=== PATIENT | female | born 1955 | race Caucasian/White ===

== ENCOUNTER → 2018-02-17 | Outpatient (CLI) | payer OTHER ==
[~2018-02-17] MED LIST: ACET500T33 PO; ALPR0.25 PO; OXYC1TAB7 PO
--- NOTE | 2018-02-20 18:08 | PATHOLOGY ---
[facility] Accession Number: [id number] . 01 Material submitted: . PART A: LT BREAST TISSUE PART B: LT AXILLA NODE TISSUE . 01 Clinical history: . Left breast inflammatory carcinoma Left axilla adenopathy . 02 Diagnosis: A. Left breast needle biopsies: - Invasive high-grade ductal carcinoma. - See comment. . B. Left axillary lymph node needle biopsies: - Metastatic poorly differentiated adenocarcinoma. . (ESTELLAM:liang; 02/20/2018) MBR/02/20/2018 . 02 Comment: Sections of the left breast needle biopsies reveal an invasive mammary carcinoma. The malignant cells are present in solid nests and cords which infiltrate an inflamed reactive desmoplastic stroma. The tumor shows little to no tubule formation and marked nuclear pleomorphism. Mitotic figures are readily demonstrated. Some of the nests of tumor show central coagulative tumor necrosis. There are a few scattered tumor associated calcifications. There is no definitive lymphovascular tumor invasion. Breast prognostic studies will be obtained, the results of which will be reported separately. . Sections of the left axillary lymph node needle biopsies essentially show replacement of maira parenchyma by a metastatic epithelial neoplasm. The tumor cells are present in nests and cords and the neoplastic cells appear similar to that within the left breast needle biopsies. . The case is also examined by Dr. Bronson, who concurs with the diagnosis. Breast prognostic studies will be obtained on the breast biopsy, the results of which will be reported seperately. . . . . (ESTELLAM:liang; 02/20/2018) . 02 Electronically signed: . Valentino Byrnes MD, Pathologist NPI- [id number] . 01 Gross description: . A. The specimen is received in formalin, labeled "Lars Uriarte, left breast tissue" and consists of 6 needle cores of leon-yellow tissue measuring between 0.4 cm and 1.8 cm in length and 0.2 cm each in diameter. They are entirely submitted in A1-A2. The specimen was obtained at 10:28 AM on 02/17/18 and placed in formalin at 10:35 AM. The cold ischemic time is 7 minutes and the total formalin fixation time is greater than 6 hours but less than 72 hours. . B. The specimen is received in formalin, labeled "Lars Uriarte, left axilla node" and consists of 4 delicate needle cores of leon tissue measuring between 1.3 cm and 1.8 cm in length and 0.1 cm each in diameter. They are entirely submitted in B1. No time obtained or time in formalin is provided. (SDY; 02/17/2018) SYU/SYU . 02 Pathologist provided ICD-10: C50.912, C77.3 . 02 CPT . 899473, 092105 Specimen Comment: A courtesy copy of this report has been sent to Specimen Comment: [phone], . Specimen Comment: Report sent to / DR GUERRERO Performed at: 01 [facility] [address], [place], [place] [id number] MD Ori Foote MD Phone: [phone] Performed at: 02 [facility] [address] [place], [place] [id number] MD Valentino Byrnes MD Phone: [phone]
--- NOTE | 2018-02-23 08:40 | RAD ---
Ultrasound-guided left breast biopsy, 02/17/2018: History: Breast mass Previous studies demonstrated numerous breast masses with the largest discrete mass lying at the 6:00 location. Under local anesthesia, aseptic conditions and sonographic guidance, five 14-gauge core samples were obtained from this mass via a inferolateral approach. Samples were sent to pathology for evaluation. A biopsy marker was then deposited at the biopsy site. Hemostasis was then obtained. Ultrasound-guided left axillary lymph node biopsy, 02/17/2018: Preliminary scans demonstrated several abnormal enlarged left axillary lymph nodes. Under local anesthesia, aseptic conditions and sonographic guidance, four 18-gauge core samples were obtained from one of these large nodes. Samples were sent to pathology for evaluation. A biopsy marker was then deposited within the node. Hemostasis was obtained. Two view digital mammograms were then obtained to document position of the breast biopsy marker. The mammograms are of poor quality due to technical difficulties related to the extreme density of the breast. Breast biopsy marker lies at the 5-6:00 location. The axillary lymph node biopsy marker is not visualized due to its position. The patient tolerated these procedures well and left the department in good condition. Note: The pathology report from the left breast biopsy shows the presence of invasive high-grade ductal carcinoma. This is a concordant finding. The pathologic findings from left axillary lymph node biopsy indicated the presence of metastatic poorly differentiated adenocarcinoma.
== END | disposition home or self-care (01) ==
LOC: US 09:29
PROVIDERS: ATTEND Surgery
DX: C50.912 Malignant neoplasm of unspecified site of left female breast (principal); C77.3 Secondary and unspecified malignant neoplasm of axilla and upper limb lymph nodes
CPT/HCPCS: 19081; 19083; 38505; 76942; 77065; 88305; 88361

== ENCOUNTER → 2018-02-23 | Outpatient (CLI) | payer OTHER ==
--- NOTE | 2018-02-23 11:37 | RAD ---
FDG tumor localization scan, PET/CT, 02/23/2018: History: Left breast cancer Following IV injection of 12.4 mCi of 18 F-FDG, imaging was performed from the skull base to the proximal thighs. The noncontrast CT component was performed for attenuation correction and anatomic localization purposes rather than for primary diagnosis. The patient's blood glucose level at the time of injection was 104 MG/DL. The patient's known large multifocal left breast malignancy is hypermetabolic with maximum SUVs in the 10-12 range. There is moderate left axillary, left lower cervical and left internal mammary hypermetabolic adenopathy. There is hypermetabolic mediastinal adenopathy, left greater than right. There is hypermetabolic pleural thickening on the the left, best seen anterior medially but also present anterolaterally with moderate associated left-sided pleural fluid. There is slightly increased FDG uptake in a small upper cervical lymph node on the right with a maximum SUV of 2.6. There is a small hypermetabolic lower cervical lymph node along the lateral margin of the right lobe of the thyroid gland. There is low level FDG uptake in several nonenlarged right axillary lymph nodes. Normal GI tract and urinary tract activity is present in the abdomen and pelvis. No hypermetabolic abdominal or pelvic lesion is seen. No definite hypermetabolic bone lesion is identified. Incidental CT findings include the presence of moderate left lower lobe atelectasis related to the pleural fluid. There is considerable streaky subcutaneous edema and overlying skin thickening related to the left breast. Several low density hepatic lesions are compatible with cysts. IMPRESSION: 1. The patient's known extensive multifocal left breast malignancy is hypermetabolic with evidence of metastatic spread to the left axilla, left internal mamillary region, mediastinum and lower neck, left greater than right. 2. Hypermetabolic pleural thickening in the left chest with a moderate-sized associated left pleural effusion, compatible with pleural metastatic disease.
== END | disposition home or self-care (01) ==
LOC: PETSC 08:43
PROVIDERS: ATTEND Internal Medicine Hematology & Oncology
DX: J90 Pleural effusion, not elsewhere classified (principal); J92.9 Pleural plaque without asbestos; Z85.3 Personal history of malignant neoplasm of breast
CPT/HCPCS: 78815; A9552

== ENCOUNTER → 2018-03-01 | Day surgery (SDC) | payer OTHER ==
[~2018-03-01] VITALS: Ht 157.5 cm; Wt 65.8 kg
[~2018-03-01] MED LIST changes: +BUPIVAC MPF-EPI 0.5%-1:200000 30 ML VIAL. ONE; +BUPIVACAINE 0.5% 50 ML VIAL. ONE; +DEXAMETHASONE SOD PHOS 20 MG/5 ML VIAL. ONE; +HEPARIN SODIUM 5,000 UNIT in IV NORMAL SALINE 500ML BAG 500 ML IRR ONE; +HYDROmorphone 2 MG/ML VIAL IV PRN; +IV RINGERS,LACTATED 1000ML 1,000 ML IV SCH; +LIDOCAINE 1% PF 2 ML VIAL. ID PRN; +LIDOCAINE 2% PF Vial for OR 5 ML VIAL. ONE; +MIDAZOLAM HCL/PF 2 MG/2 ML VIAL. ONE; +MORPHINE SULFATE 2 MG/ML VIAL. IV PRN; +NEOMY/BACITR/POLYMYXIN OINT PACKET. TP ONE; +ONDANSETRON PF 4 MG/2 ML VIAL. IV PRN; +ONDANSETRON PF 4 MG/2 ML VIAL. ONE; +PROCHLORPERAZINE 10 MG/2 ML VIAL. IV PRN; +PROPOFOL 20 ML IV ONE; +SEVOFLURANE 61 TO 120 MINUTES. IH ONE; +SUCCINYLCHOLINE 200 MG/10 ML VIAL. ONE; +fentaNYL PF VIAL 100 MCG/2 ML VIAL IV PRN; +fentaNYL PF VIAL 100 MCG/2 ML VIAL ONE; +fentaNYL PF VIAL 250 MCG/5 ML VIAL ONE; +oxyCODONE/APAP 5/325 1 TAB TABLET PO PRN
--- NOTE | 2018-03-01 13:07 | DISCH ---
DISCHARGE INSTRUCTIONS Condition on Discharge Condition on Discharge: Stable Activity After Discharge Activity Instructions for Disc: Activity as tolerated, Avoid exertion Lifting Instructions after Dis: No heavy lifting Driving Instructions after Dis: Do not drive today Diet after Discharge Diet after Discharge: Regular Wound Incision Care Wound/Incision Care: Ice to area for comfort Other wound/incision instructi: september shower Tuesday Follow-Up Follow Up With: Tony next week SILVIO GUERRERO MD Mar 01, 2018 13:07
[2018-03-01 14:15] VITALS: BP 146/66
--- NOTE | 2018-03-01 16:20 | RAD ---
Portable chest, 03/01/2018: HISTORY: Check Port-A-Cath placement No previous chest radiograph is available at this time for comparison purposes. A right Port-A-Cath is in place extending into the inferior aspect of the superior vena cava. The heart appears mildly enlarged. There is a moderate sized left pleural effusion with underlying atelectasis/infiltrate. Pleural thickening is present particularly along the left side of the upper mediastinum. The recent PET study suggestive that this is likely on a metastatic basis. There is mild streaky atelectasis in the right suprahilar region. No right-sided pleural fluid or pneumothorax is seen. IMPRESSION: 1. The right Port-A-Cath extends into the inferior aspect of the superior vena cava. 2. Moderate sized left pleural effusion with moderate underlying atelectasis/infiltrate. 3. Mild right suprahilar atelectasis. Electronically signed by: Gus Nielson MD (03/01/2018 4:17 PM) [facility]
--- NOTE | 2018-03-07 14:32 | PDOC ---
BRIEF OPERATIVE NOTE Date: Mar 01, 2018 Pre-Op Diagnosis inflammatory breast carcinoma Post-Op Diagnosis same Procedure Performed power port placement Surgeon Tony Anesthesia Type: General Blood Loss 25cc IV Fluid 600cc Specimens Obtained none Findings Post Op CXR showed tip in the SVC without evidence of a pneumothorax, left pleural effusion Complications none Operative Note Wk # [id number] SILVIO GUERRERO MD Mar 07, 2018 14:32
--- NOTE | 2018-03-07 14:46 | OP ---
DATE OF SURGERY: 03/01/2018 PREOPERATIVE DIAGNOSIS: Inflammatory breast carcinoma. POSTOPERATIVE DIAGNOSIS: Inflammatory breast carcinoma. PROCEDURE: Placement of a PowerPort. SURGEON: Silvio Guerrero MD. ANESTHESIA: General and LMA. ESTIMATED BLOOD LOSS: 25 mL. INTRAVENOUS: 600 mL. INDICATIONS: The patient is a 62-year-old who needs venous access for chemotherapy after recent diagnosis of inflammatory breast carcinoma. DESCRIPTION OF PROCEDURE: The patient brought to the operating suite, given a general LMA and the right infraclavicular area and chest were prepped and draped in usual sterile fashion. With the table in Trendelenburg, 0.5% plain Marcaine was infiltrated a fingerbreadth below the clavicle at the junction medial two-thirds lateral third. Small incision was made and a Cook needle used to cannulate the right subclavian vein. Flexible guidewire was advanced under observation with fluoroscopy into the superior vena cava and the needle was removed. Pocket incision infiltrated with 0.5% Marcaine with epinephrine, incised and a pocket developed. Catheter laid on the patient's chest and using fluoroscopy as a guide, cut to an appropriate length. The catheter was then tunneled from the insertion site to the pocket site where it was attached to the reservoir. The reservoir was seated in the pocket and with the bed in Trendelenburg under fluoroscopic observation, the dilator and sheath were passed over the wire. The wire was removed. The dilator was removed and the catheter was threaded through the sheath and the sheath was then removed. There was good flow into and out of the catheter at completion. Table returned to level. Pocket incision closed with interrupted inverted 3-0 Vicryl in the subcutaneous tissue. Skin incisions closed with subcuticular 4-0 Monocryl. Sterile strips and dressing applied. The patient awakened from her anesthetic and had an upright chest x-ray made. Showed the tip of the catheter to reside in superior vena cava without evidence of pneumothorax. She was taken to the postop area in stable condition having tolerated the procedure well. SILVIO GUERRERO MD DR: CARLITA/jas JOB#: [id number] / [id number]
--- NOTE | 2018-03-15 17:17 | RAD ---
EXAM: Chest, 2 views. HISTORY: Port catheter placement. COMPARISON: None. FINDINGS: 2 fluoroscopic images of the chest are obtained. The images demonstrate interval placement of a port catheter with the tip in the superior vena cava. There is a nasogastric tube with the tip in the distal esophagus. There is an endotracheal tube within the right mainstem bronchus. The total fluoroscopy time is not submitted with the images. IMPRESSION: 1. Fluoroscopic imaging for port catheter placement. The catheter tip is in the superior vena cava. 2. Nasogastric tube within the distal esophagus and endotracheal tube within the right mainstem bronchus. Note is made that the images are submitted for review 9 days following the exam. A radiograph obtained on the same date of the port catheter placement demonstrates interval extubation and removal of the aforementioned nasogastric tube. Electronically signed by: Josette Arthur MD (03/15/2018 5:14 PM) [facility]
== END | disposition home or self-care (01) ==
LOC: SURG 10:02
PROVIDERS: ATTEND Surgery
DX: C50.912 Malignant neoplasm of unspecified site of left female breast (principal); F41.9 Anxiety disorder, unspecified; Z79.2 Long term (current) use of antibiotics; Z88.6 Allergy status to analgesic agent; Z90.710 Acquired absence of both cervix and uterus; Z79.899 Other long term (current) drug therapy; E66.3 Overweight; Z68.26 Body mass index [BMI] 26.0-26.9, adult; Z98.890 Other specified postprocedural states; Z80.1 Family history of malignant neoplasm of trachea, bronchus and lung; Z80.42 Family history of malignant neoplasm of prostate
CPT/HCPCS: 36561; 71045; 77001; A7015; C1788; J0330; J0690; J1100; J1644; J2001; J2250; J2405; J2704; J3010; J3490; J7040; 36556

== ENCOUNTER → 2018-03-06 | Outpatient (CLI) | payer OTHER ==
[2018-03-01 14:15] VITALS: BP 146/66
[~2018-03-06] MED LIST changes: -BUPIVAC MPF-EPI 0.5%-1:200000 30 ML VIAL. ONE; -BUPIVACAINE 0.5% 50 ML VIAL. ONE; -DEXAMETHASONE SOD PHOS 20 MG/5 ML VIAL. ONE; -HEPARIN SODIUM 5,000 UNIT in IV NORMAL SALINE 500ML BAG 500 ML IRR ONE; -HYDROmorphone 2 MG/ML VIAL IV PRN; -IV RINGERS,LACTATED 1000ML 1,000 ML IV SCH; -LIDOCAINE 1% PF 2 ML VIAL. ID PRN; -LIDOCAINE 2% PF Vial for OR 5 ML VIAL. ONE; -MIDAZOLAM HCL/PF 2 MG/2 ML VIAL. ONE; -MORPHINE SULFATE 2 MG/ML VIAL. IV PRN; -NEOMY/BACITR/POLYMYXIN OINT PACKET. TP ONE; -ONDANSETRON PF 4 MG/2 ML VIAL. IV PRN; -ONDANSETRON PF 4 MG/2 ML VIAL. ONE; -PROCHLORPERAZINE 10 MG/2 ML VIAL. IV PRN; -PROPOFOL 20 ML IV ONE; -SEVOFLURANE 61 TO 120 MINUTES. IH ONE; -SUCCINYLCHOLINE 200 MG/10 ML VIAL. ONE; -fentaNYL PF VIAL 100 MCG/2 ML VIAL IV PRN; -fentaNYL PF VIAL 100 MCG/2 ML VIAL ONE; -fentaNYL PF VIAL 250 MCG/5 ML VIAL ONE; -oxyCODONE/APAP 5/325 1 TAB TABLET PO PRN
--- NOTE | 2018-03-06 16:01 | CARD ---
MR#: [id number] Date of Study: 03/06/2018 Ordering Physician: TRINI RODARTE, Referring Physician: TRINI RODARTE Tech: Esme Rodriguez RDCS APPROVED REPORT EXAM: LIMITED Two-dimensional and M-mode echocardiogram. Other Information Quality : Technically LimitedHR: 108bpm Rhythm : Tachycardia INDICATION Breast cancer 2D DIMENSIONS RVDd2.5 (2.9-3.5cm)IVSd1.0 (0.7-1.1cm) LVDd3.6 (3.9-5.9cm)PWd1.1 (0.7-1.1cm) LVDs2.6 (2.5-4.0cm)FS (%) 29.2 % SV31.1 mlLVEF(%)56.9 (>50%) LEFT VENTRICLE The left ventricle is normal size. There is normal left ventricular wall thickness. The left ventricu lar systolic function is normal and the ejection fraction is within normal range. The Ejection Fracti on is 55-60%. Technically very limited study to evaluate for wall motion, but grossly no significant regional wall motion noted. RIGHT VENTRICLE The right ventricle is normal size. The right ventricular systolic function is normal. ATRIA Not well visualized AORTIC VALVE Valves not well visualized. GREAT VESSELS Not well visualized. PERICARDIAL EFFUSION Small pleural effusion noted. Probable trace pericardial effusion. Cannot rule out large, avascular h epatic versus thoracic cavity cyst. Recommend clinical correlation and abd/pelvis CT Critical Notification Critical Value: No <Conclusion> The left ventricular systolic function is normal and the ejection fraction is within normal range. Th e Ejection Fraction is 55-60%. Technically very limited study to evaluate for wall motion, but grossly no significant regional wall motion noted. Probable trace pericardial effusion. Cannot rule out large, avascular hepatic versus thoracic cavity cyst. Recommend clinical correlation and chest/ abd/pelvis CT Signed by : Otf Mcdonald, Electronically Approved : 03/06/2018 16:00:40
== END | disposition home or self-care (01) ==
LOC: ECHO 12:12
PROVIDERS: ATTEND Internal Medicine Hematology & Oncology
DX: C50.812 Malignant neoplasm of overlapping sites of left female breast (principal); R00.0 Tachycardia, unspecified; Z17.0 Estrogen receptor positive status [ER+]
CPT/HCPCS: 93308

== ENCOUNTER 2018-03-09 08:02 | Outpatient (CLI) | payer OTHER ==
[2018-03-09] VITALS (10 sets, daily range): BP systolic 148–178; BP diastolic 62–83
[~2018-03-09] VITALS: Ht 157.5 cm; Wt 65.8 kg
[2018-03-09 08:43] LABS: CALCIUM 9.6 mg/dL (8.5-10.1); CREATININE 0.8 mg/dL (0.6-1.0); GFR 72.2; POTASSIUM 3.1 mmol/L (3.5-5.1)
[2018-03-09 08:44] LABS: BASO # 0.1 x10^3/uL (0.0-0.2); BASO % 0 % (0-3); EOS # 0.1 x10^3/uL (0.0-0.7); EOS % 1 % (0-3); HEMATOCRIT 42.2 % (36.0-47.0); HEMOGLOBIN 14.3 g/dL (12.0-15.5); LYMPH # 1.4 x10^3/uL (1.0-4.8); LYMPH % 11 % (24-48); MEAN CORPUSCULAR HEMOGLOBIN 31 pg (25-35); MEAN CORPUSCULAR HGB CONC 34 g/dL (31-37); MEAN CORPUSCULAR VOLUME 92 fL (79-100); MONO # 1.2 x10^3/uL (0.0-1.1); MONO % 9 % (0-9); NEUT # 10.5 x10^3uL (1.8-7.7); NEUT % 79 % (31-73); PLATELET COUNT 506 x10^3/uL (140-400); RED BLOOD COUNT 4.57 x10^6/uL (3.50-5.40); RED CELL DISTRIBUTION WIDTH 12.9 % (11.5-14.5); WHITE BLOOD COUNT 13.3 x10^3/uL (4.0-11.0)
[2018-03-09 08:49] LABS: ALBUMIN 3.6 g/dL (3.4-5.0); ALBUMIN/GLOBULIN RATIO 0.8 (1.0-1.7); TOTAL BILIRUBIN 0.4 mg/dL (0.2-1.0)
[2018-03-09 08:53] LABS: PROTHROMBIN TIME PATIENT 13.5 SEC (11.7-14.0)
[2018-03-09] MEDS ORDERED: MIDAZOLAM HCL/PF 2 MG/2 ML VIAL. ONE (09:41)
[2018-03-09] MEDS ORDERED: fentaNYL PF VIAL 100 MCG/2 ML VIAL IV ONE (09:45)
[2018-03-09] MEDS ORDERED: MIDAZOLAM HCL/PF 2 MG/2 ML VIAL. IV ONE (10:00)
[2018-03-09] MEDS ORDERED: fentaNYL PF VIAL 100 MCG/2 ML VIAL ONE (10:15)
--- NOTE | 2018-03-09 12:41 | RAD ---
Ultrasound-guided left-sided thoracentesis 03/09/2018 12:37 PM Indication: LEFT PLEURAL FLUID Procedure: Informed consent was obtained. A timeout procedure was performed. Sonographic evaluation of the left chest was performed demonstrating moderate pleural effusion. The left posterior chest was prepped and draped in sterile fashion. 1% lidocaine without epinephrine was administered for local anesthesia. Real-time ultrasonographic guidance was used in passing a 5 Romansh [employer] Qualifiedeh catheter into the left pleural space. 0.7 L of serosanguineous pleural fluid was removed. Samples of fluid were sent to the lab for further evaluation per ordering physician request. The catheter was removed and pressure held to achieve hemostasis. A sterile dressing was applied. No immediate complications were identified. The patient tolerated the procedure well. Impression: Left sided ultrasound-guided thoracentesis
--- NOTE | 2018-03-09 12:45 | RAD ---
CHEST AP ONLY History: POST LT SIDE THORACENTESIS Comparison: 03/01/2018 Findings: Single view of the chest is submitted. No pneumothorax is identified. There is improved aeration of the left hemithorax. There is persistent mild hazy airspace opacity on the left greatest of the mid to inferior hemithorax, also mild blunting of the left costophrenic sulcus. Heart size is stable. There is again right subclavian port catheter with the tip in the superior vena cava. Impression: 1. There is improved aeration of the left hemithorax, some residual mild hazy airspace opacity and mild blunting left costophrenic sulcus. No pneumothorax is identified. Electronically signed by: Jorden Escoto MD (03/09/2018 12:42 PM) [facility]
--- NOTE | 2018-03-12 18:06 | PATHOLOGY ---
Note [facility] Accession Number: [id number] TESTS RESULT FLAG UNITS REF RANGE LAB Clinician Provided Cytology Information No. of containers..01 Other (Miscellaneous) Source: [A] 01 LEFT PLEURAL FLUID DIAGNOSIS: [A] 02 LEFT PLEURAL FLUID POSITIVE FOR MALIGNANT CELLS. ADENOCARCINOMA IS PRESENT. THIS INTERPRETATION INCLUDES EVALUATION OF A CELL BLOCK. PATIENT'S HISTORY OF BREAST ADENOCARCINOMA IS NOTED. Signed out by: 02 Christiano Bronson MD, Pathologist NPI- [id number] Performed by: Ender Lozada, Coal [employer] ([facility]) Gross description: 01 32ML, YELLOW, CLEAR /LCS FLAG LEGEND: L-Low Normal,H-High Normal,LL-Alert Low,HH-Alert High <-Panic Low,>-Panic High,A-Abnormal,AA-Critical Abnormal Performed at: [address] [place] [address] Ori Foote MD, 02 [facility] [address] [place] [address] Valentino Byrnes MD, Specimen Comment: A courtesy copy of this report has been sent to Specimen Comment: [phone]. Specimen Comment: Report sent to Performed at: [address] [place] [address] [address], [place], [place] [id number] MD Ori Foote MD Phone: [phone]
== END 2018-03-09 12:08 | disposition home or self-care (01) ==
LOC: INTRAD 08:02
PROVIDERS: ATTEND Internal Medicine Hematology & Oncology
DX: C38.4 Malignant neoplasm of pleura (principal); Z88.5 Allergy status to narcotic agent
CPT/HCPCS: 32555; 36415; 71045; 80053; 85025; 85610; J2250; J3010; 88112; 88305; 99152

== ENCOUNTER → 2018-03-20 | Outpatient (CLI) | payer OTHER ==
[2018-03-13 10:26] VITALS: BP 134/60
[~2018-03-20] MED LIST changes: +GADOBUTROL 7.5 MMOL/7.5 ML VIAL IV ONE
--- NOTE | 2018-03-20 15:06 | RAD ---
MR of the left shoulder with and without contrast HISTORY: Malignant breast cancer. Pain. TECHNIQUE: Routine multiplanar sequences are obtained. Imaging performed before and after intravenous contrast. FINDINGS: Multiple enlarged axillary lymph nodes are identified. These measure up to 2.1 cm in short axis and have a neoplastic or infiltrate appearance. The larger nodes demonstrate central nonenhancement compatible with necrosis. Mild axillary soft tissue edema and enhancement. There is also mild edema along or within the left pectoralis muscles, and extending in the barely visualized upper breast tissue. Small enhancing bone lesion at the upper humeral shaft measures 5 mm. There is an even smaller punctate enhancing focus in the slightly more distal shaft, measuring 2 mm. Study is not protocoled for intra-articular evaluation. There is a linear deep undersurface tear of the anterior supraspinatus tendon, measures about 1 cm AP diameter, and about 90% deep. No full-thickness or retracted tear. There is generalized tendinosis. No significant joint effusion. Subtle signal within the superior labrum compatible with a small tear. Biceps tendon is intact. IMPRESSION: 1. Significantly enlarged axillary lymph nodes with a pathologic appearance, most likely due to maira metastases, with necrotic components. 2. 2 small subcentimeter bone lesions within the proximal humerus, most suspicious for metastases. 3. Rotator cuff tendinosis, deep linear undersurface tear of the anterior supraspinatus tendon footprint, without full-thickness or retracted tear. 4. Small superior labral tear. 5. Edema and enhancement extending into the barely visualized upper left breast tissue, could be related to the patient's breast cancer or treatment change. Electronically signed by: Ron Capellan MD (03/20/2018 3:03 PM) [facility]
== END | disposition home or self-care (01) ==
LOC: MRI 12:42
PROVIDERS: ATTEND Internal Medicine Hematology & Oncology
DX: S43.432A Superior glenoid labrum lesion of left shoulder, initial encounter (principal); R60.0 Localized edema; R59.0 Localized enlarged lymph nodes; Z85.3 Personal history of malignant neoplasm of breast; X58.XXXA Exposure to other specified factors, initial encounter; Y93.89 Activity, other specified; Y92.89 Other specified places as the place of occurrence of the external cause; Y99.8 Other external cause status
CPT/HCPCS: 73223; A9585

== ENCOUNTER → 2018-05-11 | Outpatient (CLI) | payer OTHER ==
[2018-04-27 08:34] VITALS: BP 133/76
[~2018-05-11] MED LIST changes: +CONTRAST GIVEN. MC PRN; -GADOBUTROL 7.5 MMOL/7.5 ML VIAL IV ONE; +HEPARIN PF 500 UNIT/5 ML DISP.SYRIN. IV ONE; +IOHEXOL 240 MG/ML 50ML VIAL. PO ONE; +IOHEXOL 300 MG/ML 100ML VIAL. IV ONE
--- NOTE | 2018-05-11 14:11 | RAD ---
CT chest, abdomen and pelvis with contrast 05/11/2017 CLINICAL INDICATION: Follow-up breast carcinoma. COMPARISON: PET/CT 02/23/2018. TECHNIQUE: Multiple CT images of the chest, abdomen and pelvis were obtained following the intravenous administration of 75 mL Omnipaque 300. *One or more of the following individualized dose reduction techniques were utilized for this examination: 1. Automated exposure control. 2. Adjustment of the mA and/or kV according to patient size. 3. Use of iterative reconstruction technique. FINDINGS: CHEST: Right subclavian chest port terminating in the low SVC. Heart size is normal without significant pericardial effusion. The thoracic aorta is normal in caliber. Resolution in left axillary and mediastinal lymphadenopathy. There is a mildly prominent left axillary lymph node measuring 0.5 cm short axis series 2/image 25 and mild prominent upper right paratracheal lymph node measuring 0.4 cm short axis series 2/image 21. Resolution of left internal maxillary. Persistent left breast cutaneous thickening with significant decrease in multifocal nodularity throughout the left breast with asymmetric confluent breast tissue compared to the right. Resolution and asymmetric left anterior chest wall soft tissue thickening. There is a 0.2 cm subpleural noncalcified pulmonary nodule in the basilar left lower lobe series 2/image 43. Resolution of left pleural effusion and left pleural nodular thickening. There are no destructive osseous lesions. Abdomen and pelvis: Liver is normal in size with left hepatic simple cyst. There are additional subcentimeter hypodensities in both lobes of the liver which are too small to definitively characterize such as seen in hepatic segment 2 series 4/image 11 and key account representative right hepatic lesion in segment 8 series 4/image 13. Gallbladder, spleen, adrenal glands, pancreas and kidneys are unremarkable. Abdominal aorta normal in caliber with trace calcified plaque. Major portal veins are patent. No retroperitoneal or mesenteric lymphadenopathy. No abdominal free fluid. No pneumoperitoneum. Small and large bowel loops are normal in caliber without obstruction. Appendix is normal in appearance. Minimally distended and unopacified urinary bladder unremarkable. Hysterectomy with the vaginal cuff unremarkable. No iliac or inguinal lymphadenopathy. Development of a mild L1 compression deformity with estimated less than 20% vertebral body height loss and no bony retropulsion. IMPRESSION: Chest: 1. Persistent left breast skin thickening improvement in left breast nodularity consistent with known primary malignancy. 2. Resolution and left chest wall soft tissue thickening, left pleural nodularity and associated effusion, and thoracic lymphadenopathy consistent with a favorable response to therapy. 3. Tiny, 0.2 cm, left lung pulmonary nodule which was not previously visualized due to pleural effusion. Finding is likely benign, though attention on follow-up is recommended. Abdomen and pelvis: 1. Multiple hepatic hypodensities which are too small to definitively characterize, though likely cysts. Attention on follow-up imaging is recommended. 2. Development of an L1 compression deformity without associated sclerotic or lytic lesion and is indeterminate between nonpathologic or pathologic. MRI could be obtained for further evaluation, if clinically indicated. 3. No definitive evidence of abdominal or pelvic metastatic disease. Electronically signed by: Tian Newton MD (05/11/2018 2:06 PM) [id number]
--- NOTE | 2018-05-11 17:20 | RAD ---
CLINICAL HISTORY: breast ca. dx 02/23. currently undergoing chemo. COMPARISON: CT 05/11/2018 TECHNIQUE: Radiopharmaceutical Dose: 25.1 mCi Tc99m MDP intravenous Approximately 2-4 hours after the administration of tracer, the patient was instructed to void and whole body images were obtained in the anterior and posterior projections. FINDINGS/ IMPRESSION: Focal soft tissue uptake within the both breasts is seen, uncertain clinical significance, possibly developing dystrophic calcification. No definite subjacent osseous uptake is definitively identified. Uptake within the L1 vertebral body likely from a new L1 compression deformity as seen on CT. No other suspicious focus of increased uptake is identified. Radiation Dosimetry: The radiopharmaceutical used for this exam delivers approximately 0.21 mSv/mCi (21 mRem/mCi) Source: RADIATION DOSE ESTIMATES TO ADULTS AND CHILDREN, [place]; Effective dose RADAR Electronically signed by: Clint Blair MD (05/11/2018 5:16 PM) [facility]
== END | disposition home or self-care (01) ==
LOC: NM 07:54
PROVIDERS: ATTEND Internal Medicine Hematology & Oncology
DX: C50.812 Malignant neoplasm of overlapping sites of left female breast (principal); K76.89 Other specified diseases of liver; I70.0 Atherosclerosis of aorta; Z17.0 Estrogen receptor positive status [ER+]
CPT/HCPCS: 71260; 74177; 78306; 96374; A9503; Q9966; Q9967

== ENCOUNTER → 2018-06-01 | Outpatient (CLI) | payer OTHER ==
[2018-05-18 11:25] VITALS: BP 116/70
[~2018-06-01] MED LIST changes: -CONTRAST GIVEN. MC PRN; -HEPARIN PF 500 UNIT/5 ML DISP.SYRIN. IV ONE; -IOHEXOL 240 MG/ML 50ML VIAL. PO ONE; -IOHEXOL 300 MG/ML 100ML VIAL. IV ONE
--- NOTE | 2018-06-01 11:22 | CARD ---
MR#: [id number] Date of Study: 06/01/2018 Ordering Physician: TRINI RODARTE, Referring Physician: TRINI RODARTE Tech: Molly Solares RDCS APPROVED REPORT EXAM: LIMITED Two-dimensional echocardiogram Other Information Quality : Good INDICATION LV Function:Systolic Breast Cancer 2D DIMENSIONS RVDd2.4 (2.9-3.5cm)Left Atrium(2D)3.1 (1.6-4.0cm) IVSd0.8 (0.7-1.1cm)Aortic Root(2D)2.2 (2.0-3.7cm) LVDd4.4 (3.9-5.9cm)LVOT Diameter2.0 (1.8-2.4cm) PWd0.9 (0.7-1.1cm)LVDs2.6 (2.5-4.0cm) FS (%) 30.5 %SV64.1 ml LVEF(%)60.0 (>50%) LEFT VENTRICLE The left ventricle is normal size. There is normal left ventricular wall thickness. The left ventricu lar systolic function is normal and the ejection fraction is within normal range. The Ejection Fracti on is 55-60%. There is normal LV segmental wall motion. RIGHT VENTRICLE The right ventricle is normal size. The right ventricular systolic function is normal. ATRIA The left atrium size is normal. The right atrium size is normal. MITRAL VALVE Mildly myxomatous anterior mitral leaflet. GREAT VESSELS The aortic root is normal in size. PERICARDIAL EFFUSION There is no evidence of significant pericardial effusion. Critical Notification Critical Value: No <Conclusion> The left ventricular systolic function is normal and the ejection fraction is within normal range. Th e Ejection Fraction is 55-60%. There is normal LV segmental wall motion. Normal Global strain values. Limited echo only for EF and wall motion. Signed by : Otf Mcdonald, Electronically Approved : 06/01/2018 11:20:08
== END | disposition home or self-care (01) ==
LOC: ECHO 09:46
PROVIDERS: ATTEND Internal Medicine Hematology & Oncology
DX: C50.812 Malignant neoplasm of overlapping sites of left female breast (principal); Z17.0 Estrogen receptor positive status [ER+]
CPT/HCPCS: 93308

== ENCOUNTER → 2018-08-22 | Outpatient (CLI) | payer MEDICARE ==
[2018-08-17 09:20] VITALS: BP 142/71
--- NOTE | 2018-08-22 10:01 | CARD ---
MR#: [id number] Date of Study: 08/22/2018 Ordering Physician: TRINI RODARTE, Referring Physician: TRINI RODARTE Tech: Esme Rodriguez RDCS APPROVED REPORT EXAM: LIMITED Two-dimensional and M-mode echocardiogram. Other Information Quality : GoodHR: 89bpm Rhythm : NSR INDICATION Breast Cancer follow up 2D DIMENSIONS RVDd3.1 (2.9-3.5cm)IVSd1.0 (0.7-1.1cm) LVDd4.0 (3.9-5.9cm)PWd0.9 (0.7-1.1cm) LVDs2.5 (2.5-4.0cm)FS (%) 37.9 % SV49.2 mlLVEF(%)65.0 (>50%) LEFT VENTRICLE The left ventricle is normal size. There is normal left ventricular wall thickness. The left ventricu lar systolic function is normal. The Ejection Fraction is 60-65%. There is normal LV segmental wall m otion. GLS is normal at -21 RIGHT VENTRICLE The right ventricle is normal size. There is normal right ventricular wall thickness. The right ventr icular systolic function is normal. ATRIA The left atrium size is normal. The right atrium size is normal. The interatrial septum is intact wit h no evidence for an atrial septal defect or patent foramen ovale as noted on 2-D or Doppler imaging. AORTIC VALVE The aortic valve is normal in structure and function. The aortic valve is trileaflet. MITRAL VALVE The mitral valve is normal in structure and function. TRICUSPID VALVE The tricuspid valve is normal in structure and function. PULMONIC VALVE The pulmonic valve is not well visualized. GREAT VESSELS The aortic root is normal in size. The ascending aorta is normal in size. The IVC is normal in size a nd collapses >50% with inspiration. PERICARDIAL EFFUSION There is no evidence of significant pericardial effusion. Critical Notification Critical Value: No <Conclusion> Limited echo to evaluate LV function. The left ventricular systolic function is normal. The Ejection Fraction is 60-65%. There is normal LV segmental wall motion. GLS is normal at -21 There is no evidence of significant pericardial effusion. Signed by : Artemio Chen, Electronically Approved : 08/22/2018 10:01:32
== END | disposition home or self-care (01) ==
LOC: ECHO 08:39
PROVIDERS: ATTEND Internal Medicine Hematology & Oncology
DX: C50.812 Malignant neoplasm of overlapping sites of left female breast (principal); C79.51 Secondary malignant neoplasm of bone; Z17.0 Estrogen receptor positive status [ER+]
CPT/HCPCS: 93308

== ENCOUNTER → 2018-11-24 | Outpatient (CLI) | payer MEDICARE ==
[2018-11-10 10:49] VITALS: BP 148/73
--- NOTE | 2018-11-24 08:55 | CARD ---
MR#: [id number] Date of Study: 11/24/2018 Ordering Physician: TRINI RODARTE, Referring Physician: TRINI RODARTE Tech: Esme Rodriguez RDCS APPROVED REPORT EXAM: LIMITED Two-dimensional and M-mode echocardiogram. Other Information Quality : AverageHR: 79bpm Rhythm : NSR INDICATION Breast Cancer 2D DIMENSIONS RVDd2.5 (2.9-3.5cm)Left Atrium(2D)3.3 (1.6-4.0cm) IVSd0.8 (0.7-1.1cm)Aortic Root(2D)2.2 (2.0-3.7cm) LVDd4.8 (3.9-5.9cm)PWd0.8 (0.7-1.1cm) LVDs3.4 (2.5-4.0cm)FS (%) 28.9 % SV59.2 mlLVEF(%)55.5 (>50%) LEFT VENTRICLE The left ventricle is normal size. There is normal left ventricular wall thickness. The left ventricu lar systolic function is normal. The Ejection Fraction is 55%. Global strain -19 There is normal LV s egmental wall motion. RIGHT VENTRICLE The right ventricle is normal size. There is normal right ventricular wall thickness. The right ventr icular systolic function is normal. ATRIA The left atrium size is normal. The right atrium size is normal. The interatrial septum is intact wit h no evidence for an atrial septal defect or patent foramen ovale as noted on 2-D or Doppler imaging. GREAT VESSELS The aortic root is normal in size. The IVC is normal in size and collapses >50% with inspiration. PERICARDIAL EFFUSION There is no evidence of significant pericardial effusion. Critical Notification Critical Value: No <Conclusion> The left ventricular systolic function is normal. The Ejection Fraction is 55%. Global strain -19 There is normal LV segmental wall motion. There is no evidence of significant pericardial effusion. Signed by : Artemio Chen, Electronically Approved : 11/24/2018 08:54:39
== END | disposition home or self-care (01) ==
LOC: ECHO 07:29
PROVIDERS: ATTEND Internal Medicine Hematology & Oncology
DX: C50.011 Malignant neoplasm of nipple and areola, right female breast (principal)
CPT/HCPCS: 93308

== ENCOUNTER → 2018-12-13 | Outpatient (CLI) | payer MEDICARE ==
[2018-12-01 11:16] VITALS: BP 138/66
[~2018-12-13] MED LIST changes: +HEPARIN PF 500 UNIT/5 ML DISP.SYRIN. IV ONE; +IOHEXOL 240 MG/ML 50ML VIAL. PO ONE; +IOHEXOL 300 MG/ML 100ML VIAL. IV ONE
--- NOTE | 2018-12-13 11:47 | RAD ---
Examination: CT CHEST ABD PELVIS W/CONTRAST History: Malignant neoplasm of the right nipple Comparison/Correlation: 08/09/2018 CT chest abdomen and pelvis with contrast Findings: Axial images of the chest, abdomen, and pelvis were obtained following IV and oral contrast. Sagittal and coronal reformatted images were provided. Right-sided infusion port catheter tip terminates within the superior vena cava. At the inferior pole of the left thyroid gland, there is a low-attenuation lesion with rim calcification. No infiltrates or pulmonary nodules evident. Tracheobronchial tree is unremarkable. No suspicious pulmonary nodule or mass lesions. No enlarged thoracic lymph nodes. Left breast skin thickening about the nipple again seen. Gallbladder fossa is unremarkable. Spleen, pancreas, adrenal glands, and kidneys are normal. Small hiatal hernia is present. Liver lesions are present and unchanged compared to prior exam. Most of these appear to represent cysts with largest measuring up to 4 cm diameter. No new hepatic lesion. No enlarged abdominal or pelvic lymph nodes. Appendix is normal. No bowel obstruction or extraluminal gas. No ascites or pelvic free fluid. Bony structures are unchanged. Mild L1 compression deformity of the superior endplate is similar to prior exam. Dextroconvexity of the lumbar spine noted. Impression: No evidence of metastases or enlarged lymph nodes within the interval. Skin thickening in the left periareolar region is similar to the prior exam. PQRS Compliance Statement: One or more of the following individualized dose reduction techniques were utilized for this examination: 1. Automated exposure control 2. Adjustment of the mA and/or kV according to patient size 3. Use of iterative reconstruction technique Electronically signed by: Alvarado Ashford MD (12/13/2018 11:45 AM) [facility]
== END | disposition home or self-care (01) ==
LOC: CT 07:42
PROVIDERS: ATTEND Internal Medicine Hematology & Oncology
DX: C50.011 Malignant neoplasm of nipple and areola, right female breast (principal); K76.89 Other specified diseases of liver; E07.89 Other specified disorders of thyroid; M43.8X6 Other specified deforming dorsopathies, lumbar region; M53.86 Other specified dorsopathies, lumbar region
CPT/HCPCS: 71260; 74177; Q9966; Q9967

== ENCOUNTER → 2019-02-26 | Outpatient (CLI) | payer MEDICARE ==
[2018-12-22 13:21] VITALS: BP 164/77
[~2019-02-26] MED LIST changes: -HEPARIN PF 500 UNIT/5 ML DISP.SYRIN. IV ONE; -IOHEXOL 240 MG/ML 50ML VIAL. PO ONE; -IOHEXOL 300 MG/ML 100ML VIAL. IV ONE
--- NOTE | 2019-02-26 10:56 | CARD ---
MR#: [id number] Date of Study: 02/26/2019 Ordering Physician: TRINI RODARTE, Referring Physician: TRINI RODARTE Tech: Bridgette Chau APPROVED REPORT EXAM: Two-dimensional and M-mode echocardiogram with Doppler and color Doppler. Other Information Quality : AverageHR: 75bpm INDICATION Breast cancer 2D DIMENSIONS RVDd2.6 (2.9-3.5cm)Left Atrium(2D)3.5 (1.6-4.0cm) IVSd0.9 (0.7-1.1cm)Aortic Root(2D)2.4 (2.0-3.7cm) LVDd4.8 (3.9-5.9cm)LVOT Diameter1.9 (1.8-2.4cm) PWd1.0 (0.7-1.1cm)LVDs2.8 (2.5-4.0cm) FS (%) 41.0 %SV77.6 ml LEFT VENTRICLE Limited study for LV function. The left ventricle is at the upper limit of normal. There is normal le ft ventricular wall thickness. The left ventricular systolic function is normal. The Ejection Fractio n is 50-55%. There is normal LV segmental wall motion. Diastology not performed. RIGHT VENTRICLE The right ventricle is normal size. There is normal right ventricular wall thickness. The right ventr icular systolic function is normal. ATRIA The left atrium size is normal. The right atrium size is normal. The interatrial septum is intact wit h no evidence for an atrial septal defect or patent foramen ovale as noted on 2-D or Doppler imaging. AORTIC VALVE The aortic valve is normal in structure and function. Doppler and color-flow analysis was not perform ed. There is no significant aortic valvular stenosis. MITRAL VALVE The mitral valve is normal in structure and function. There is no evidence of mitral valve prolapse. There is no mitral valve stenosis. Doppler and color-flow analysis was not performed. TRICUSPID VALVE The tricuspid valve is normal in structure and function. Doppler and color-flow analysis was not perf ormed. There is no tricuspid valve stenosis. PULMONIC VALVE The pulmonic valve is not well visualized. Doppler and color-flow analysis was not performed. GREAT VESSELS The aortic root is normal in size. The IVC is normal in size and collapses >50% with inspiration. PERICARDIAL EFFUSION There is no evidence of significant pericardial effusion. Critical Notification Critical Value: No <Conclusion> Limited study for LV function. The left ventricle is at the upper limit of normal. The left ventricular systolic function is normal. The Ejection Fraction is 50-55%. There is normal LV segmental wall motion. Signed by : Derek Cardenas MD Electronically Approved : 02/26/2019 10:55:43
== END | disposition home or self-care (01) ==
LOC: ECHO 08:33
PROVIDERS: ATTEND Internal Medicine Hematology & Oncology
DX: C50.011 Malignant neoplasm of nipple and areola, right female breast (principal); C79.51 Secondary malignant neoplasm of bone; Z88.8 Allergy status to other drugs, medicaments and biological substances
CPT/HCPCS: 93308

== ENCOUNTER → 2019-03-12 | Outpatient (CLI) | payer MEDICARE ==
[2018-12-22 13:21] VITALS: BP 164/77
[~2019-03-12] MED LIST changes: +CONTRAST GIVEN. MC PRN; +IOHEXOL 240 MG/ML 50ML VIAL. PO ONE; +IOHEXOL 300 MG/ML 100ML VIAL. IV ONE
--- NOTE | 2019-03-12 11:53 | RAD ---
EXAM: CT OF THE CHEST, ABDOMEN AND PELVIS WITH CONTRAST. HISTORY: Breast cancer, bone metastasis. TECHNIQUE: Computed tomography of the chest, abdomen and pelvis was performed after the intravenous administration of iodinated contrast. COMPARISON: 12/13/2018. FINDINGS: Bone windows reveal no suspicious lesions. There are post breast constipation therapy changes on the left. There are no pathologically enlarged mediastinal or axillary lymph nodes. There is no pleural or pericardial effusion. The heart is not enlarged. There is a moderate to large hiatal hernia. A right-sided port catheter has its tip in the superior cavoatrial junction. Lung windows reveal no infiltrates were clearly suspicious nodules. Mild hypoattenuation of the hepatic parenchyma suggests diffuse hepatic steatosis. Fluid density lesions in the liver measure up to 4.2 cm and likely represent cysts. The gallbladder, spleen, adrenal glands and kidneys are unremarkable. Mildly prominent periportal lymph nodes measure up to 1.4 x 0.6 cm. There are no clearly pathologically enlarged nodes. There is no small bowel obstruction. The appendix is not inflamed. There is no ascites. The uterus is surgically absent. IMPRESSION: 1. No evidence of metastatic disease. 2. Moderate to large hiatal hernia. 3. Suspect mild diffuse hepatic steatosis. *One or more of the following individualized dose reduction techniques were utilized for this examination: 1. Automated exposure control. 2. Adjustment of the mA and/or kV according to patient size. 3. Use of iterative reconstruction technique. Electronically signed by: Heather Jeronimo MD (03/12/2019 11:50 AM) [facility]
== END | disposition home or self-care (01) ==
LOC: CT 08:14
PROVIDERS: ATTEND Internal Medicine Hematology & Oncology
DX: K44.9 Diaphragmatic hernia without obstruction or gangrene (principal); C79.51 Secondary malignant neoplasm of bone
CPT/HCPCS: 71260; 74177; Q9966; Q9967

== ENCOUNTER → 2019-05-29 | Outpatient (CLI) | payer MEDICARE ==
[2018-12-22 13:21] VITALS: BP 164/77
[~2019-05-29] MED LIST changes: -CONTRAST GIVEN. MC PRN; -IOHEXOL 240 MG/ML 50ML VIAL. PO ONE; -IOHEXOL 300 MG/ML 100ML VIAL. IV ONE
--- NOTE | 2019-05-29 10:00 | CARD ---
MR#: [id number] Date of Study: 05/29/2019 Ordering Physician: EDDIE LUCAS, Referring Physician: EDDIE LUCAS, Tech: Bridgette Chau APPROVED REPORT EXAM: Two-dimensional and M-mode echocardiogram with Doppler and color Doppler. Other Information Quality : AverageHR: 74bpm INDICATION Breast Cancer 2D DIMENSIONS RVDd2.8 (2.9-3.5cm)Left Atrium(2D)3.3 (1.6-4.0cm) IVSd0.9 (0.7-1.1cm)Aortic Root(2D)2.5 (2.0-3.7cm) LVDd4.6 (3.9-5.9cm)LVOT Diameter2.0 (1.8-2.4cm) PWd0.9 (0.7-1.1cm)LVDs2.9 (2.5-4.0cm) FS (%) 35.7 %SV63.2 ml LVEF(%)65.3 (>50%) LEFT VENTRICLE The left ventricle is normal size. There is normal left ventricular wall thickness. The left ventricu lar systolic function is normal. The Ejection Fraction is 55-60%. There is normal LV segmental wall m otion. Diastology not performed limited echo. RIGHT VENTRICLE The right ventricle is normal size. There is normal right ventricular wall thickness. The right ventr icular systolic function is normal. ATRIA The left atrium size is normal. The right atrium size is normal. The interatrial septum is intact wit h no evidence for an atrial septal defect or patent foramen ovale as noted on 2-D or Doppler imaging. AORTIC VALVE The aortic valve is normal in structure and function. Doppler and color-flow analysis was not perform ed. There is no significant aortic valvular stenosis. MITRAL VALVE The mitral valve is normal in structure and function. There is no evidence of mitral valve prolapse. There is no mitral valve stenosis. Doppler and color-flow analysis was not performed. TRICUSPID VALVE The tricuspid valve is normal in structure and function. Doppler and color-flow analysis was not perf ormed. There is no tricuspid valve stenosis. PULMONIC VALVE The pulmonic valve is not well visualized. Doppler and color-flow analysis was not performed. GREAT VESSELS The aortic root is normal in size. The IVC is normal in size and collapses >50% with inspiration. PERICARDIAL EFFUSION There is no evidence of significant pericardial effusion. Critical Notification Critical Value: No <Conclusion> Limited echo to assess LV function. The left ventricular systolic function is normal. The Ejection Fraction is 55-60%. There is normal LV segmental wall motion. Incidental finding of cystic lesion in liver. There is no evidence of significant pericardial effusion. Signed by : Artemio Chen, Electronically Approved : 05/29/2019 10:00:18
== END | disposition home or self-care (01) ==
LOC: ECHO 07:50
PROVIDERS: ATTEND Internal Medicine Hematology & Oncology
DX: C50.812 Malignant neoplasm of overlapping sites of left female breast (principal); K76.89 Other specified diseases of liver; Z17.0 Estrogen receptor positive status [ER+]
CPT/HCPCS: 93308

== ENCOUNTER → 2019-06-12 | Outpatient (CLI) | payer MEDICARE ==
[2018-12-22 13:21] VITALS: BP 164/77
[~2019-06-12] MED LIST changes: +CONTRAST GIVEN. MC PRN; +IOHEXOL 240 MG/ML 50ML VIAL. PO ONE; +IOHEXOL 300 MG/ML 100ML VIAL. IV ONE
--- NOTE | 2019-06-12 15:50 | RAD ---
CT chest, abdomen and pelvis with contrast HISTORY: Left breast cancer Comparison: March 12, 2019 , , Technique: Computed tomographic images of thorax, abdomen and pelvis were performed. Isovue-370 nonionic contrast material was administered intravenously without incident.: 75 CC PQRS Compliance Statement: One or more of the following individualized dose reduction techniques were utilized for this examination: 1. Automated exposure control 2. Adjustment of the mA and/or kV according to patient size 3. Use of iterative reconstruction technique Chest findings: Portacatheter is in place. Thyroid glands stable Mediastinum cyst table No significant thoracic lymphadenopathy No effusions Small hiatal hernia unchanged Bibasilar scarring. No new nodules or lung masses. Abdomen findings: Liver stable Spleen unremarkable Adrenal glands unremarkable Pancreas unremarkable Gallbladder unremarkable Kidney stable No significant central retroperitoneal lymphadenopathy. Mesenteric lymphadenopathy stable Appendix normal Pelvis findings: Bladder is mostly decompressed but unremarkable. Uterus surgically absent No significant pelvic lymphadenopathy IMPRESSION: No evidence of metastatic disease Hepatorenal cysts are stable Bulky portacaval lymphadenopathy is stable Old L1 fracture is stable Electronically signed by: Myron Rowland MD (06/12/2019 3:47 PM) [id number]
== END | disposition home or self-care (01) ==
LOC: CT 08:34
PROVIDERS: ATTEND Internal Medicine Hematology & Oncology
DX: C50.912 Malignant neoplasm of unspecified site of left female breast (principal); N28.1 Cyst of kidney, acquired; R59.0 Localized enlarged lymph nodes; K44.9 Diaphragmatic hernia without obstruction or gangrene; J98.4 Other disorders of lung; Z87.81 Personal history of (healed) traumatic fracture
CPT/HCPCS: 71260; 74177; Q9966; Q9967